=== PATIENT | female | born 1990 | race Two or more races ===

== ENCOUNTER 2023-10-03 12:59 | Emergency (ER) | payer BC ==
[~2023-10-03] VITALS: Ht 172.7 cm; Wt 83.9 kg
[2023-10-03 13:44] LABS: BASOPHILS # (AUTO) 0.1 K/UL (0.0-0.2); BASOPHILS % (AUTO) 1.1 % (0.0-2.0); DIFFERENTIAL COMMENT 0; EOSINOPHILS # (AUTO) 0.2 K/uL (0.0-0.7); EOSINOPHILS % (AUTO) 2.4 % (0.0-7.0); HEMATOCRIT 33.4 % (31.2-41.9); HEMOGLOBIN 10.5 g/dL (10.9-14.3); LYMPHOCYTES # (AUTO) 2.2 K/uL (0.8-4.8); MEAN CORPUSCULAR HEMOGLOBIN 21.8 uug (24.7-32.8); MEAN CORPUSCULAR HGB CONC 31 g/dL (32.3-35.6); MEAN CORPUSCULAR VOLUME 69.5 fL (75.5-95.3); MONOCYTES # (AUTO) 0.8 K/uL (0.1-1.30); MONOCYTES % (AUTO) 11.7 % (0.0-11.0); NEUTROPHILS # (AUTO) 3.6 K/uL (1.8-8.9); NEUTROPHILS % (AUTO) 52.8 % (38.5-71.5); PLATELET COUNT (AUTO) 358 K/uL (179-408); RED BLOOD CELL COUNT(AUTO) 4.81 MIL/uL (3.63-4.92); RED CELL DISTRIBUTION WIDTH 19.9 % (12.3-17.7); WHITE BLOOD COUNT (AUTO) 6.9 K/uL (3.8-11.8)
[2023-10-03 13:57] LABS: ALBUMIN 3.5 g/dL (3.4-5.0); BILIRUBIN,DIRECT 0.1 mg/dL (0.0-0.2); BILIRUBIN,TOTAL 0.3 mg/dL (0.2-1.0); CALCIUM 8.8 mg/dL (8.5-10.1); POTASSIUM 3.5 mmol/L (3.5-5.1); TOTAL PROTEIN, SERUM 7.6 g/dL (6.4-8.2)
[2023-10-03 13:57] LABS: *BILIRUBIN,URIN NEGATIVE (NEGATIVE); *BLOOD, URINE NEGATIVE (NEGATIVE); *CLARITY,URINE CLEAR (CLEAR); *COLOR,URINE YELLOW (YELLOW); *KETONES,URINE TRACE (NEGATIVE); *PROTEIN,URINE NEGATIVE (NEGATIVE); *UROBILINOGEN,URINE 0.2 E.U./dl (NORMAL); LEUKOCYTE ESTERASE ,URINE TRACE (NEGATIVE); NITRITE, URINE NEGATIVE (NEGATIVE); PH,URINE 5.5 (5.0-8.0); UGLUCOSE NEGATIVE (NEGATIVE)
[2023-10-03 14:04] LABS: *URINE HCG, QUAL NEGATIVE (NEGATIVE)
[2023-10-03 14:09] LABS: BACTERIA,URINE MANY /HPF (NONE SEEN); SQUAMOUS EPITHELIAL CELL,UR MODERATE /HPF (NONE SEEN)
[2023-10-03] MEDS ORDERED: KETOROLAC TROMETHAMINE 30 MG INJ ONE (14:52)
[2023-10-03] MEDS ORDERED: CEFTRIAXONE /D5W 50ML IVPB **ER PYXIS IV ONE (14:52)
[2023-10-03] MEDS: CEFTRIAXONE 1 G in IV DEXTROSE 5% 50 ML IV ONE ×2 (15:15→15:17)
[2023-10-03] MEDS: KETOROLAC TROMETHAMINE 30 MG INJ IVP ONE ×2 (15:16→15:17)
[2023-10-03] MEDS ORDERED: NITR100C11 PO (16:35)
[2023-10-03] MEDS ORDERED: IBUP800T54 PO (16:35)
[2023-10-03 17:27] VITALS: BP 94/62; TEMP 97.5; O2SAT 98
== END 2023-10-03 16:45 | disposition home or self-care (01) ==
LOC: ER 13:03
DX: N39.0 Urinary tract infection, site not specified (principal); R10.9 Unspecified abdominal pain; R10.2 Pelvic and perineal pain; Z88.1 Allergy status to other antibiotic agents
CPT/HCPCS: 99285; 76770; 96365; 96375; 80076; 80048; 81001; 84703; 83690; 85025; 36415; 76856; J0696; J1885; A4606; A4663